=== PATIENT | male | born 1965 | race Caucasian/White ===

== ENCOUNTER → 2019-05-05 08:14 | Outpatient (CLI) | payer BC, SELFPAY ==
--- NOTE | ~2019-05-05 | MR_ITS ---
EXAMINATION: MR brain/brain stem wo/w con EXAM DATE: 05/05/2019 09:11 INDICATION: Follow-up benign neoplasm. TECHNIQUE: Magnetic resonance imaging (MRI) of the brain/brain stem obtained without contrast. Sagit jameson T1, axial diffusion, gradient echo (T2*), T1, T2, FLAIR sequences obtained. Patient was then inj ected with 20 cc intravenous Multihance contrast. Axial and coronal postcontrast T1 weighted sequence s obtained. There is no prior study for comparison. FINDINGS: Again there is an extra-axial mass along the posterior aspect just below the foramen magnum posteriorly. It is high signal intensity on T2-weighted sequence, without restricted diffusion or en hancement. It measures 2.4 cm craniocaudal dimension by 2.1 x 1.2 cm in axial dimensions. There are n o areas of restricted diffusion to suggest acute infarction. There is no acute hemorrhage seen on th e T2*, a hemosiderin sensitive sequence. No intraparenchymal brain mass. The ventricles are normal i n size. Minimal microangiopathy. There are no extra-axial collections. Flow voids are seen in the ce rebral arteries on the T2-weighted sequences consistent with their expected patency. The orbits are unremarkable. Soft tissue is unremarkable. Moderate ethmoid, mild maxillary sinus mucoperiosteal t hickening. No sinus air-fluid levels. There are no areas of abnormal enhancement on the post contrast images. IMPRESSION: 1. 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 2. Moderate ethmoid, mild maxillary mucoperiosteal thickening. Reviewed, dictated and finalized at location A. IMPRESSION: 1. 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 2. Moderate ethmoid, mild maxillary mucoperiosteal thickening.
[2019-05-05 08:49] LABS: Estimated Glomerular Filt Rate 53
== END ==
PROVIDERS: PCP Family Medicine
DX: D33.1 Benign neoplasm of brain, infratentorial (principal); R93.0 Abnormal findings on diagnostic imaging of skull and head, not elsewhere classified
CPT/HCPCS: 36415; 70553; A9577

== ENCOUNTER 2020-08-25 06:49 | Emergency (ER) | payer BC, SELFPAY ==
[2020-08-25 06:59] VITALS: BP 134/89; PULSE 62; RESP 16; TEMP 36.5; O2SAT 97
--- NOTE | 2020-08-25 07:18 | ED.WOUNDLAC ---
HPI - Wound/Laceration General Chief Complaint: Wound/Laceration Stated Complaint: cut finger Time Seen by Provider: 08/25/20 07:18 Source: patient Mode of arrival: ambulatory Limitations: no limitations History of Present Illness HPI narrative: 55-year-old man comes in today complaining of laceration on his left long finger. States he was cutting watermelon with a knife at home. He denies any numbness, tingling or decreased range of motion. Does not recall his last tetanus. Onset (ago): minute(s) (30) Extremity Location: Left: hand Place: home Patient tetanus UTD: No Context: accidental Associated symptoms: pain Treatments prior to arrival: bandage Related Data Home Medications Medication Instructions Recorded Confirmed No Home Medications 08/25/20 08/25/20 Allergies Allergy/AdvReac Type Severity Reaction Status Date / Time No Known Allergies Allergy Verified 08/25/20 07:18 Review of Systems Review of Systems: All systems reviewed & are unremarkable except as noted in HPI and below Musculoskeletal: Musculoskeletal: Denies arthralgias and Denies joint swelling Integumentary/Breasts: Skin/Breast: Denies pruritus, Denies erythema and Denies rash Neurologic: Denies dizziness, Denies numbness and Denies weakness Hematologic/Lymphatic: Hematologic/Lymphatic: Denies easy bleeding and Denies easy bruising PMFSH Surgical History Surgical History (Updated 08/25/20 @ 08:00 by Hero Barnett MD) History of hip surgery with femur dayana after trauma Social History Social History (Updated 08/25/20 @ 08:00 by Hero Barnett MD) Smoking status: Never smoker Substance use: never Living arrangements: with family Exam Const: General: no acute distress and alert Orientation/consciousness: patient oriented x3 Resp: Effort & Inspection: normal respiratory effort Auscultation: clear to auscultation bilaterally, no rales, no rhonchi and no wheezes Cardio: Rate: regular rate Rhythm: regular rhythm Skin: General skin exam: normal color, no jaundice and no pallor Rashes: no rashes Other: 2 cm irregular laceration on the dorsal aspect of the left long finger between the IP joints. No foreign bodies found. Distal neurovascular exam is intact. Extensor tendons are intact to challenge. Neuro: General: patient oriented x3, moves all extremities, no focal motor deficits and CN's II-XI intact bilaterally Speech: normal speech Gait exam (Neuro): Normal gait present Extrem: General: normal to inspection and no clubbing, cyanosis or edema Psych: Appearance: grossly normal and well kempt Mental Status: mental status grossly normal Affect: normal affect Attitude: cooperative Thought content: Yes Normal thought content present Course Vital Signs Vital signs: Vital Signs Temperature 36.5 C 08/25/20 06:59 Pulse Rate 62 08/25/20 06:59 Respiratory Rate 16 08/25/20 06:59 Blood Pressure 134/89 08/25/20 06:59 Pulse Oximetry 97 08/25/20 06:59 Temperature 36.5 C 08/25/20 06:59 Pulse Rate 62 08/25/20 06:59 Respiratory Rate 16 08/25/20 06:59 Blood Pressure 134/89 08/25/20 06:59 Pulse Oximetry 97 08/25/20 06:59 Procedures Laceration Laceration 1: Date: 08/25/20 Time: 07:30 Site: hand Side (If applicable): left Description: irregular Depth: simple, single layer Local Anesthetic: lidocaine 1% Amount of anesthesia used (mL): 1.5 ====== Skin Level ====== Skin layer closed with: nylon Size (cm): 4-0 Number of sutures: 4 Technique: simple, interrupted ====== Subcutaneous Layer ====== ====== Muscle Layer ====== ====== Tendon Layer ====== Discharge Plan Discharge Clinical Impression: Laceration Patient Disposition: Home, Self-Care Condition: Stable Instructions: Care For Your Stitches (ED), Laceration (ED) Additional Instructions: Keep the wound
[2020-08-25 08:09] VITALS: PULSE 60; RESP 20; O2SAT 98
[2020-08-25] MEDS: TETANUS,DIPHTHERIA,AC PERTUSSIS ADULT 0.5 ML (ADACEL) (08:11)
== END 2020-08-25 08:22 | disposition home or self-care (01) ==
PROVIDERS: Emergency Provider Emergency Medicine; PCP Family Medicine
DX: S61.213A Laceration without foreign body of left middle finger without damage to nail, initial encounter (principal); W26.0XXA Contact with knife, initial encounter
CPT/HCPCS: 12001; 90471; 90715; 99282